=== PATIENT | female | born 1945 ===

== ENCOUNTER 2018-01-02 09:24 | Outpatient (CLI) | payer OTHER | END 2018-01-02 09:30 | disposition home or self-care (01) | LOC: SONOGRAMA 09:24 | DX: E04.1 Nontoxic single thyroid nodule (principal) ==

== ENCOUNTER 2020-03-07 11:02 | Emergency (ER) | payer OTHER ==
[~2020-03-07] VITALS: Ht 152.4 cm; Wt 49.9 kg
== END 2020-03-07 19:08 | disposition home or self-care (01) ==
LOC: ER 11:02
DX: K29.70 Gastritis, unspecified, without bleeding (principal); N28.1 Cyst of kidney, acquired

== ENCOUNTER 2025-04-28 07:06 | Outpatient (CLI) | payer OTHER | END 2025-04-28 07:07 | disposition home or self-care (01) | LOC: NUCLEAR 07:06 | PROVIDERS: ATTEND Internal Medicine Gastroenterology | DX: K31.84 Gastroparesis (principal) | CPT/HCPCS: 78264; A9541 ==